=== PATIENT | female | born 1975 | race Caucasian/White ===

== ENCOUNTER 2022-10-10 19:39 | Emergency (ER) | payer MEDICAID ==
[2022-10-10] VITALS (10 sets, daily range): BP systolic 66–137; BP diastolic 39–86
[~2022-10-10] VITALS: Ht 165.1 cm; Wt 90.9 kg
[2022-10-10] MEDS ORDERED: METFORMIN HCL500 M1 PO (19:55)
[2022-10-10 20:30] LABS: BASO% 0.2 % (0-3); HEMATOCRIT 38.5 % (37.0-47.0); HEMOGLOBIN 12.3 g/dl (12.0-16.0); IMMATURE GRANULOCYTES 0.2 % (0.0-5.0); MEAN CELL VOLUME 80.2 fL CALC (80.0-100.0); MEAN CORPUSCULAR HGB 25.6 pG CALC (26.0-32.0); MEAN CORPUSCULAR HGB CONC 31.9 g/dL CAL (32.0-36.0); MONO% 5.9 % (2-13); NEUT# 5.45 thou/uL (2.00-7.15); NEUT% 59.7 % (42-76); RED BLOOD COUNT 4.8 mill/uL (4.20-5.60); RED CELL DISTRI WIDTH 14.3 % (11.5-15.5)
[2022-10-10 20:46] LABS: ALBUMIN 4.2 g/dL (3.2-5.0); ALKALINE PHOSPHATASE 77 u/l (38-126); ANION GAP 13 (6-22 (CALC)); BILIRUBIN, TOTAL 0.2 mg/dL (0.02-1.3); BUN 14 mg/dL (7-17); BUN/CREATININE RATIO 27 (12-20 (CALC)); CARBON DIOXIDE 25 mmol/l (22-30); CHLORIDE 99 mmol/l (95-108); CREATININE 0.5 mg/dL (0.5-1.0); GFR FOR AFR.AMER. > 60 ML/MIN (>=60 (CALC)); GFR OTHER RACES > 60 ML/MIN (>=60 (CALC)); LIPASE 165 u/l (23-300); POTASSIUM 3.8 mmol/l (3.5-5.1); SGOT/AST 20 u/l (14-36); SODIUM 133 mmol/l (137-146); TOTAL PROTEIN 7.4 g/dL (6.3-8.2)
[2022-10-10 23:04] LABS: URINE BILIRUBIN - DIPSTICK NEGATIVE (NEGATIVE); URINE BLOOD DIPSTICK NEGATIVE (NEGATIVE); URINE COLOR YELLOW; URINE GLUCOSE - DIPSTICK >=1000 mg/dL (NEGATIVE); URINE KETONE >=80 mg/dL (NEGATIVE); URINE LEUK ESTERASE NEGATIVE (NEGATIVE); URINE PROTEIN - DIPSTICK NEGATIVE (NEG-TRACE); URINE SPECIFIC GRAVITY 1.015; URINE UROBILINOGEN - DIPSTICK 0.2 E.U./dL (0.2)
[2022-10-10 23:07] LABS: URINE NITRITE - DIPSTICK NEGATIVE (Negative)
[2022-10-10] MEDS ORDERED: PROMETHAZINE HY25 M1 PO (23:12)
== END 2022-10-10 23:41 | disposition home or self-care (01) ==
LOC: ED 19:39
PROVIDERS: Family Medicine
DX: A08.4 Viral intestinal infection, unspecified (principal); E11.9 Type 2 diabetes mellitus without complications; Z79.84 Long term (current) use of oral hypoglycemic drugs; Z20.822 Contact with and (suspected) exposure to COVID-19
CPT/HCPCS: S0164

== ENCOUNTER 2022-10-11 23:45 | Emergency (ER) | payer MEDICAID ==
[~2022-10-11] VITALS: Ht 165.1 cm; Wt 90.0 kg
[~2022-10-11 23:45] MED LIST: METFORMIN HCL500 M1 PO; PROMETHAZINE HY25 M1 PO
[2022-10-12 01:44] VITALS: BP 113/78
== END 2022-10-12 01:54 | disposition home or self-care (01) ==
LOC: ED 23:45
DX: S00.12XA Contusion of left eyelid and periocular area, initial encounter (principal); E11.9 Type 2 diabetes mellitus without complications; Z79.84 Long term (current) use of oral hypoglycemic drugs; Y04.2XXA Assault by strike against or bumped into by another person, initial encounter

== ENCOUNTER 2023-01-13 13:25 | Emergency (ER) | payer MEDICAID ==
[~2023-01-13] VITALS: Ht 165.1 cm; Wt 98.2 kg
[2023-01-13 13:56] VITALS: BP 114/75
[2023-01-13 14:00] VITALS: BP 111/72
[2023-01-13] MEDS ORDERED: EPIPEN 2-P0.3 MG/0.3 IN (14:29)
[2023-01-13] MEDS ORDERED: MEDDOSEPAK PO (14:29)
[2023-01-13] MEDS ORDERED: KEFLEX500 MG PO (14:36)
[2023-01-13 14:58] VITALS: BP 111/72
== END 2023-01-13 15:03 | disposition home or self-care (01) ==
LOC: ED 13:25
DX: S00.86XA Insect bite (nonvenomous) of other part of head, initial encounter (principal); E11.9 Type 2 diabetes mellitus without complications; W57.XXXA Bitten or stung by nonvenomous insect and other nonvenomous arthropods, initial encounter; Z79.84 Long term (current) use of oral hypoglycemic drugs

== ENCOUNTER 2023-01-20 08:27 | Emergency (ER) | payer MEDICAID ==
[~2023-01-20] VITALS: Ht 165.1 cm; Wt 95.4 kg
[~2023-01-20 08:27] MED LIST changes: +EPIPEN 2-P0.3 MG/0.3 IN; +KEFLEX500 MG PO; +MEDDOSEPAK PO
[2023-01-20] MEDS ORDERED: FLEXERIL5 M1 PO (08:41)
[2023-01-20] MEDS ORDERED: NAPROXEN500 MG PO (08:41)
[2023-01-20 09:15] VITALS: BP 113/73
== END 2023-01-20 09:22 | disposition home or self-care (01) ==
LOC: ED 08:27
DX: M54.50 Low back pain, unspecified (principal); E11.9 Type 2 diabetes mellitus without complications; Z79.84 Long term (current) use of oral hypoglycemic drugs

== ENCOUNTER 2023-06-08 08:54 | Emergency (ER) | payer OTHER ==
[~2023-06-08] VITALS: Ht 165.1 cm; Wt 100.0 kg
[~2023-06-08 08:54] MED LIST changes: +DOXY-CAPS100 MG PO; +EPIPEN 2-P0.3 MG/0.3 SC; +FLEXERIL5 M1 PO; +METFORMIN500 M2 PO; +NAPROXEN500 MG PO; +PEPCID20 MG PO; +PREDNISONE20 MG PO; +PREDNISONE50 MG PO; +VENTOLIN HFA108 MCG PO; +ZYRTEC10 MG PO
[2023-06-08 09:15] VITALS: BP 121/82
[2023-06-08 09:30] VITALS: BP 122/79
[2023-06-08 09:45] VITALS: BP 105/75
[2023-06-08 10:00] VITALS: BP 105/75
== END 2023-06-08 10:00 | disposition home or self-care (01) ==
LOC: ED 08:54
DX: L03.211 Cellulitis of face (principal); S00.86XA Insect bite (nonvenomous) of other part of head, initial encounter; E11.9 Type 2 diabetes mellitus without complications; W57.XXXA Bitten or stung by nonvenomous insect and other nonvenomous arthropods, initial encounter; Z79.84 Long term (current) use of oral hypoglycemic drugs

== ENCOUNTER 2023-08-10 18:45 | Emergency (ER) | payer OTHER ==
[~2023-08-10] VITALS: Ht 165.1 cm; Wt 99.7 kg
[2023-08-10] MEDS ORDERED: XANAX0.5 MG PO (19:05)
[2023-08-10] MEDS ORDERED: BENADRYL25 M1 PO (19:06)
[2023-08-10] MEDS ORDERED: VISTARIL 50MG C50 M1 PO (20:12)
[2023-08-10 21:06] VITALS: BP 121/81
== END 2023-08-10 21:42 | disposition home or self-care (01) | DRG 887 ==
LOC: ED 18:45
DX: G47.00 Insomnia, unspecified (principal); F31.9 Bipolar disorder, unspecified; F41.9 Anxiety disorder, unspecified; E11.9 Type 2 diabetes mellitus without complications; T43.206A Underdosing of unspecified antidepressants, initial encounter; Z91.128 Patient's intentional underdosing of medication regimen for other reason; Z79.84 Long term (current) use of oral hypoglycemic drugs